=== PATIENT | female | born 1960 | race Caucasian/White ===

== ENCOUNTER → 2018-01-17 | Outpatient (CLI) | payer MEDICARE ==
[~2018-01-17] MED LIST: ACETAMINOPHEN-1 EAC1 PO; CARVEDILOL12.5 MG PO; CIPRODEX OTIC7.5 ML OTIC; IBUPROFEN 800800 M1 PO; NEURONTIN 300300 M1 PO; NORTRIPTYLINE H25 M3 GT; OXYCODONE HCL 55 MG PO
== END ==
LOC: M.CT 15:00
DX: K80.20 Calculus of gallbladder without cholecystitis without obstruction (principal); I25.10 Atherosclerotic heart disease of native coronary artery without angina pectoris; R05 Cough

== ENCOUNTER 2018-04-15 10:00 | Emergency (ER) | payer MEDICARE ==
[~2018-04-15] VITALS: Ht 167.6 cm; Wt 74.8 kg
[2018-04-15] MEDS ORDERED: PROMETHAZINE V120 ML PO (10:21)
[2018-04-15] MEDS ORDERED: LEVAQUIN 500 M500 M2 PO (10:21)
[2018-04-15] MEDS ORDERED: MEDROLDOSEPACK PO (10:21)
[2018-04-15] MEDS ORDERED: TESSALON PERLE100 MG PO (10:21)
[2018-04-15 10:28] VITALS: BP 97/70
== END 2018-04-15 10:28 | disposition home or self-care (01) ==
LOC: M.ERS 10:00
DX: J20.9 Acute bronchitis, unspecified (principal); Z91.040 Latex allergy status

== ENCOUNTER 2021-01-17 12:51 | Emergency (ER) | payer MEDICARE ==
[~2021-01-17] VITALS: Ht 160 cm; Wt 83.9 kg
[~2021-01-17 12:51] MED LIST changes: +LEVAQUIN 500 M500 M2 PO; +MEDROLDOSEPACK PO; +PROMETHAZINE V120 ML PO; +TESSALON PERLE100 MG PO
[2021-01-17] MEDS ORDERED: TOPAMAX100 MG PO (13:11)
[2021-01-17] MEDS ORDERED: CLONAZEPAM 0.50.5 M1 PO (13:11)
[2021-01-17 15:20] LABS: ABSOLUTE BASOPHILS 0.1 thou/uL (0.0-0.2); ABSOLUTE EOSINOPHILS 0.2 thou/uL (0.0-0.7); ABSOLUTE LYMPHOCYTES 2.6 thou/uL (0.8-5.3); ABSOLUTE MONOCYTES 0.4 thou/uL (0.0-1.2); ABSOLUTE NEUTROPHILS 3.7 thou/uL (1.6-8.1); BASOPHILS 0.8 %; EOSINOPHILS 2.7 %; HEMATOCRIT 40.4 % (37.0-47.0); HEMOGLOBIN 13.4 gm/dL (12.0-15.0); LYMPHOCYTES 38.1 %; MCH 30.8 pg (26.0-34.0); MCHC 33.2 g/dL (28.0-37.0); MCV 92.8 fL (80.0-100.0); MONOCYTES 5.3 %; MPV 7.3 fl. (7.2-11.1); NUCLEATED RBCS 0 /100WBC; PLATELET COUNT* 236 thou/uL (150-400); POLYS 53.1 %; RBC 4.36 mil/uL (4.20-5.00); RDW-CV 12.9 % (10.5-14.5); WBC 6.9 thou/uL (4.0-11.0)
[2021-01-17 15:28] LABS: CREATININE 1.2 mg/dL (0.6-1.3); POTASSIUM 3.9 mmol/L (3.5-5.1)
[2021-01-17 15:33] LABS: ALBUMIN 3.7 g/dL (3.4-5.0); TOTAL BILIRUBIN 0.3 mg/dL (<0.1-1.0); TOTAL PROTEIN 8.3 g/dL (6.4-8.2)
[2021-01-17 17:46] VITALS: BP 103/69
== END 2021-01-17 17:46 | disposition home or self-care (01) ==
LOC: M.ERS 12:51
PROVIDERS: Nurse Practitioner Family
DX: S30.1XXA Contusion of abdominal wall, initial encounter (principal); S00.83XA Contusion of other part of head, initial encounter; S80.01XA Contusion of right knee, initial encounter; M25.512 Pain in left shoulder; Z79.899 Other long term (current) drug therapy; Z91.040 Latex allergy status; W01.0XXA Fall on same level from slipping, tripping and stumbling without subsequent striking against object, initial encounter; Y93.89 Activity, other specified; Y92.89 Other specified places as the place of occurrence of the external cause; Y99.8 Other external cause status